=== PATIENT | male | born 1955 | race Caucasian/White ===

== ENCOUNTER 2018-08-15 08:20 | Emergency (ER) | payer OTHER ==
[2018-08-15 08:34] VITALS: BP 158/89
--- NOTE | 2018-08-15 09:13 | UC ---
Lower Extremity/Ankle HPI - HPI Summary HPI Summary: A 62-year-old male with no past medical history, half pack-a-day smoker for many years, presents with months of right-sided foot and toe pain, worsening over the past 2 weeks, associated with worsening today with bluish discoloration of the toes of the right foot this morning associated with sensory numbness. Denies any weakness. Patient travels frequently by car. - History of Current Complaint Chief Complaint: UCGeneralIllness Stated Complaint: LEFT EAR,RIGHT FOOT COMPLAINT Pain Intensity: 3 - Allergies/Home Medications Allergies/Adverse Reactions: Allergies Allergy/AdvReac Type Severity Reaction Status Date / Time latex Allergy Intermediate Hives Verified 08/15/18 08:35 PMH/Surg Hx/FS Hx/Imm Hx - Additional Past Medical History Additional PMH: No past medical history. Daily smoker. - Surgical History Surgical History: None - Family History Known Family History: Negative: Blood Disorder - Social History Alcohol Use: Daily Alcohol Amount: "a couple glasses of wine ... most nights" Substance Use Type: Marijuana Substance Use Comment - Amount & Last Used: 07/03/16 Smoking Status (MU): Heavy Every Day Tobacco Smoker Type: Cigarettes Amount Used/How Often: 1/2 PPD Length of Time of Smoking/Using Tobacco: 22 Years (quit for twenty years) Have You Smoked in the Last Year: Yes - Immunization History Most Recent Influenza Vaccination: Not the 2014/2015 Season Most Recent Tetanus Shot: 07/04/16 Review of Systems Constitutional: Negative Skin: Other - Post discoloration of the toes on the right as described in history of present illness Eyes: Negative ENT: Negative Respiratory: Negative Cardiovascular: Negative Gastrointestinal: Negative Genitourinary: Negative Neurovascular: Decreased Sensation - Pain to the right foot as described in history of present illness Musculoskeletal: Other: Neurological: Numbness - Numbness to the right foot as described in history of present illness All Other Systems Reviewed And Are Negative: Yes Physical Exam - Summary Physical Exam Summary: Gen: alert, in no acute distress HEENT: EOMI, normocephalic, atruamatic Neck: supple, no masses CV: Normal s1 s2, no murmurs Resp: normal breath sounds b/l GI: no tenderness, no masses Musculoskeletal: normal ROM all 4 extremities. No weakness. Mild sensory numbness to the dorsum of the right foot. Decreased pulses on the right foot in the pedal and posterior tibial areas when located with Doppler machine. No calf swelling or pain on palpation. Negative Homans sign bilaterally. Neuro: Normal strength of the right foot and right toes Skin: no rash, slightly bluish discoloration of all of the toes and the right foot Lymph: no lymphadenopathy Psych: appropriate affect, orientedl Triage Information Reviewed: Yes Vital Signs: Initial Vital Signs Temp 36.0 C 08/15/18 08:28 Pulse 84 08/15/18 08:28 Resp 16 08/15/18 08:28 BP 158/89 08/15/18 08:28 Pulse Ox 99 08/15/18 08:28 Lower Extremity Course/Dx - Course Course Of Treatment: I spoke with Carolina at the emergency department at [facility] and discussed case. I recommended that the patient go to the emergency department for further examination for peripheral vascular disease with a concerning examination. I also prescribed antibiotics for likely left- sided otitis externa/media, patient agrees to and understands discharge instructions. Patient stable for self transport immediately to the ED. - Differential Dx/Diagnosis Provider Diagnoses: Peripheral vascular disease otitis media, otitis externa, Discharge - Sign-Out/Discharge Documenting (check all that apply): Patient Departure All imaging exams completed and their final reports reviewed: No Studies - Discharge Plan Condition: Stable Disposition: HOME-RECOMMEND TO ED Prescriptions: Amoxicillin PO (*) [Amoxicillin 500 MG CAP*] 500 mg PO BID #14 cap Carbamide Peroxide 6.5% OTIC* [DEBROX 6.5% Otic*] 5 drop LEFT EAR BID #1 bottle Ciproflox/Dexameth OTIC.SUSP* [Ciprodex Otic*] 4 drop .SEE ORDER BID 7 Days #1 bottle Patient Education Materials: Otitis Externa (ED), Peripheral Vascular Disease ( ED) Referrals: No Primary Care Phys,NOPCP [Primary Care Provider] - Additional Instructions: PLEASE GO STRAIGHT TO THE ER PLEASE FILM SOUND COORDINATOR YOUR PRESCRIPTIONS AFTER ER VISIT - Billing Disposition and Condition Condition: STABLE Disposition: Home-Recommend to ED
== END 2018-08-15 09:18 | disposition home health service (06) ==
LOC: UCCORT 08:20
DX: I73.9 Peripheral vascular disease, unspecified (principal); H66.92 Otitis media, unspecified, left ear; H60.92 Unspecified otitis externa, left ear; F17.210 Nicotine dependence, cigarettes, uncomplicated
CPT/HCPCS: 99212; G0463

== ENCOUNTER 2018-10-02 09:45 | Emergency (ER) | payer MEDICAID, OTHER ==
[2018-10-02 10:10] VITALS: BP 131/69
--- NOTE | 2018-10-02 10:34 | UC ---
Skin Complaint HPI - HPI Summary HPI Summary: Pt c/o gradual swelling of lips that began 1 day ago and pt woke this morning with moderate swelling to lips. Pt unsure of what he may be allergic to. Has not taken any antihistamine, only has been taking lysine supplements and applying chap stick to lips. - History of Current Complaint Chief Complaint: UCGeneralIllness Time Seen by Provider: 10/02/18 10:23 Stated Complaint: SWOLLEN LIPS Hx Obtained From: Patient Onset/Duration: Gradual Onset, Lasting Days, Still Present Skin Exposure Onset/Duration: Days Ago Timing: Constant Onset Severity: Mild Current Severity: Moderate Pain Intensity: 0 Location: Discrete - lips, Face Character: Swelling Aggravating Factor(s): Touch Alleviating Factor(s): Nothing Related History: Possible Reaction to: Food - Allergy/Home Medications Allergies/Adverse Reactions: Allergies Allergy/AdvReac Type Severity Reaction Status Date / Time latex Allergy Intermediate Hives Verified 10/02/18 10:06 Review of Systems All Other Systems Reviewed And Are Negative: Yes Constitutional: Positive: Negative Skin: Positive: Other - swelling, lips Eyes: Positive: Negative ENT: Positive: Negative Respiratory: Positive: Negative Cardiovascular: Positive: Negative Gastrointestinal: Positive: Negative Genitourinary: Positive: Negative Motor: Positive: Negative Neurovascular: Positive: Negative Musculoskeletal: Positive: Negative Neurological: Positive: Negative Psychological: Positive: Negative Is Patient Immunocompromised?: No PMH/Surg Hx/FS Hx/Imm Hx Previously Healthy: Yes - 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 - Surgical History Surgical History: Yes Surgery Procedure, Year, and Place: vasular bypass 07/2018 - Family History Known Family History: Positive: Cardiac Disease Negative: Blood Disorder - Social History Occupation: Retired Lives: Alone Alcohol Use: Daily Alcohol Amount: "a couple glasses of wine ... most nights" Substance Use Type: None Substance Use Comment - Amount & Last Used: 07/03/16 Smoking Status (MU): Former Smoker Type: Cigarettes Amount Used/How Often: 1/2 PPD Length of Time of Smoking/Using Tobacco: 22 Years (quit for twenty years) Have You Smoked in the Last Year: Yes - Immunization History Most Recent Influenza Vaccination: Not the Season Most Recent Tetanus Shot: 07/04/16 Physical Exam Triage Information Reviewed: Yes Appearance: Well-Appearing Vital Signs: Initial Vital Signs Temp 97.5 F 10/02/18 10:02 Pulse 88 10/02/18 10:02 Resp 16 10/02/18 10:02 BP 131/69 10/02/18 10:02 Pulse Ox 98 10/02/18 10:02 Vital Signs Reviewed: Yes Eye Exam: Normal ENT: Positive: Other - lip swelling Dental Exam: Normal Neck exam: Normal Respiratory Exam: Normal Musculoskeletal Exam: Other Musculoskeletal: Positive: Other: - large, healing surgical incision, right medial aspect of leg from mid calf to groin Neurological Exam: Normal Psychological Exam: Normal Skin Exam: Other - surgical incision, healing right inner leg from mid calf to groin. groin area covered in dressing. Course/Dx - Differential Diagnoses - Skin Complaint Differential Diagnoses: Allergic Reaction, Angioedema - Diagnoses Provider Diagnoses: allergic reaction. angioedema Discharge - Sign-Out/Discharge Documenting (check all that apply): Patient Departure All imaging exams completed and their final reports reviewed: No Studies - Discharge Plan Condition: Stable Disposition: HOME Prescriptions: Cetirizine* [ZyrTEC 10 MG TAB*] 10 mg PO DAILY #7 tab predniSONE TAB* [Deltasone 20 MG TAB*] 20 mg PO DAILY #4 tab Patient Education Materials: Antihistamine (By mouth), Angioedema (ED) Referrals: Chao Powell MD [Primary Care Provider] - 1 Day Additional Instructions: Cetaphil Lotion apply to dry skin. Please do not use lip balm with any added chemicals only use vaseline. - Billing Disposition and Condition Condition: STABLE Disposition: Home - Attestation Statements Provider Attestation: Per institutional requirements, I have reviewed the chart, however, I was not consulted specifically or made aware of this patient by the midlevel provider. I did not personally evaluate, interact with , or disposition this patient.
== END 2018-10-02 10:43 | disposition home or self-care (01) ==
LOC: UCCORT 09:45
DX: T78.40XA Allergy, unspecified, initial encounter (principal); X58.XXXA Exposure to other specified factors, initial encounter; T78.3XXA Angioneurotic edema, initial encounter; Z87.891 Personal history of nicotine dependence
CPT/HCPCS: 99212; G0463